=== PATIENT | male | born 1985 | race Asian ===

== ENCOUNTER 2019-10-05 20:50 | Emergency (ER) | payer OTHER ==
[~2019-10-05] VITALS: Ht 188 cm; Wt 88.5 kg
[2019-10-05 21:48] VITALS: BP 134/91; TEMP 97.9
== END 2019-10-05 21:48 | disposition home or self-care (01) ==
LOC: ED 20:50
DX: R56.9 Unspecified convulsions (principal)
CPT/HCPCS: 99282

== ENCOUNTER 2019-11-02 11:57 | Emergency (ER) | payer OTHER ==
[~2019-11-02] VITALS: Ht 188 cm; Wt 88.5 kg
[2019-11-02 12:07] VITALS: BP 116/65; TEMP 98.1
[2019-11-02] MEDS ORDERED: PHENOBARB60 MG PO (12:28)
[2019-11-02] MEDS ORDERED: KEPPRA1000 MG PO (12:29)
== END 2019-11-02 12:40 | disposition home or self-care (01) ==
LOC: ED 11:57
DX: R56.9 Unspecified convulsions (principal)
CPT/HCPCS: 99282